=== PATIENT | male | born 1945 | race Caucasian/White ===

== ENCOUNTER → 2018-07-27 11:06 | Outpatient (CLI) | payer OTHER, SELFPAY ==
--- NOTE | 2018-07-27 | DI.CT.S_ITS ---
PROCEDURE: CT ABDOMEN PELVIS W CON INDICATIONS: ABDOMINAL PAIN TECHNIQUE: After the administration of oral and intravenous contrast, 5 mm thick sections acquired from the diaphragms to the symphysis. 5 mm thick coronal and sagittal reformats were performed. For radiation dose reduction, the following was used: automated exposure control, adjustment of mA and/or kV according to patient size. COMPARISON: [facility], CT, ABDOMEN/PELVIS WITH CONTRAST, 02/09/2017, 19:14. FINDINGS: Image quality: Excellent. ABDOMEN: Lung bases: Lung bases are clear. Heart size is normal. Solid organs: Liver is normal in size and enhancement. Gallbladder is surgically absent. Biliary system is non-dilated. Pancreas enhances normally. Spleen is normal in size and enhancement. No adrenal nodules. There are 2 nonobstructing calculi within the inferior pole left kidney measuring 1-2 mm diameter. Kidneys are normal in size and enhancement, without hydronephrosis. Peritoneum and bowel: Stomach and small bowel are within normal limits. A small hiatal hernia is present. The colon is nondistended. There is diverticulosis of the descending and sigmoid colon. There is moderate thickening of the mid sigmoid colon within the anterior pelvis. There is mild fat stranding surrounding the thickened segment of sigmoid colon. No pericolonic abscess. Appendix not seen. No evidence of appendicitis. No free fluid or air. Nodes and vessels: No retroperitoneal or mesenteric adenopathy. Aorta and inferior vena cava are normal in caliber. Miscellaneous: No ventral hernias. PELVIS: Genitourinary: Bladder wall thickness is normal. Miscellaneous: No inguinal hernias or adenopathy. Bones: No suspicious bony lesions. No vertebral body compression fractures. IMPRESSION: 1. Mid sigmoid colon diverticulitis without pericolonic abscess. 2. Small nonobstructing calculi in the inferior pole left kidney. 3. Small hiatal hernia. 4. Findings consistent with Dr. Richey's medical office coordinator, Yadira, on 07.27.18 at 1420 hrs. Dictated by: Khadijah Rivas M.D. on 07/27/2018 at 14:21 Approved by: Khadijah Rivas M.D. on 07/27/2018 at 14:26
== END ==
PROVIDERS: Family Provider Internal Medicine; PCP Internal Medicine; Visit Provider Internal Medicine
DX: R10.30 Lower abdominal pain, unspecified (principal); K57.32 Diverticulitis of large intestine without perforation or abscess without bleeding; N20.0 Calculus of kidney; K44.9 Diaphragmatic hernia without obstruction or gangrene
CPT/HCPCS: 74177; 80048; 85025; Q9967

== ENCOUNTER → 2018-07-27 11:14 | Outpatient (REF) | payer OTHER, SELFPAY ==
[2018-07-27 11:20] LABS: Add Manual Diff / Slide Review NO; Basophils Percent Auto 0.6 % (0-2); Eosinophils Percent Auto 0.2 % (2-4); Hematocrit 46.2 % (41-53); Hemoglobin 15.7 g/dL (13.5-17.5); Lymphocytes Percent Auto 8.3 % (25-40); Mean Corpuscular Hemoglobin 31.8 PG (26-34); Mean Corpuscular Volume 93.7 fL (80-100); Monocytes Percent Auto 10.6 % (3-14); Neutrophils Absolute Auto 8900 /uL (3000-5900); Neutrophils Percent Auto 80.3 % (50-75); Platelet Count 226 X10^3/uL (150-400); Red Blood Cell Count 4.93 X10^6/uL (4.5-5.9); Red Cell Distribution Width 13.9 % (11.6-14.8); White Blood Cell Count 11.1 X10^3/uL (4.5-11.0)
[2018-07-27 11:25] LABS: BUN Creatinine Ratio 18.6 (6-22); Blood Urea Nitrogen 13 mg/dL (9-20); Calcium 9.4 mg/dL (8.4-10.2); Carbon Dioxide 24 mmol/L (22-32); Chloride 99 mmol/L (98-107); Estimated Glomerular Filt Rate > 60.0 mL/min (>60); Glucose 143 mg/dL (80-110); HEMOLYSIS < 15 (0-50); Potassium 4.2 mmol/L (3.4-5.1); Sodium 135 mmol/L (137-145)
== END ==
LOC: LAB 11:14
PROVIDERS: Family Provider Internal Medicine; PCP Internal Medicine; Visit Provider Internal Medicine
DX: R10.30 Lower abdominal pain, unspecified (principal)
CPT/HCPCS: 80048; 85025

== ENCOUNTER 2018-08-25 09:30 | Day surgery (SDC) | payer OTHER, SELFPAY ==
[2018-08-25] VITALS (8 sets, daily range): BP systolic 123–187; BP diastolic 71–88; PULSE 60–75; RESP 10–18; TEMP 36.3–37.3; O2SAT 95–100; BMI 32.1
[2018-08-25] MEDS: SODIUM CHLORIDE 0.9% 1,000 ML 70 ML IV (09:48)
--- NOTE | 2018-08-25 10:28 | P.HP_ITS ---
History of Present Illness Date Patient Seen: 08/25/18 Chief complaint: [id number] DIAGNOSTIC SIGMOIDOSCOPY Narrative: 72-year-old male with recurrent diverticulitis. Please refer to our office note dated 08/12/2018. There has been no change to his history or physical examination since that office visit. Patient History Family & Social History Social History: household members family Meds Home Medications Medication Instructions Recorded Confirmed Type losartan 100 mg PO QDAY #0 12/21/16 08/25/18 History Multi Vitamin 08/25/18 History apixaban [Eliquis] 5 mg PO BID 08/25/18 08/25/18 History clonidine HCl 0.1 mg PO BID 08/25/18 08/25/18 History diltiazem HCl 180 mg PO DAILY 08/25/18 08/25/18 History metoprolol succinate 50 mg PO TID 08/25/18 08/25/18 History saw palmetto 08/25/18 History Allergies Allergy/AdvReac Type Severity Reaction Status Date / Time warfarin [From COUMADIN] Allergy Severe Difficulty Verified 08/25/18 10:05 Breathing Review of Systems Review of Systems All systems reviewed & are unremarkable except as noted in HPI and below Exam Vital Signs (past 8 hours): - 08/25/18 09:48 Temperature 97.4 F L Pulse Rate 75 Respiratory Rate 16 Blood Pressure 187/85 H Pulse Oximetry 99 Oxygen Delivery Method Room Air Narrative Exam Narrative: General: Patient is obese, not in apparent distress Cardiovascular: Regular rate and rhythm, no murmurs, rubs, or gallops; no evidence of edema; no palpable abdominal aortic aneurysm Gastrointestinal: Normoactive bowel sounds, soft, nontender, nondistended, no rebound tenderness, no hepatosplenomegaly, no evidence of hernia; positive surgical scars Assessment & Plan Plan: Assessment/Plan Narrative: 72-year-old male with history of recurrent diverticulitis who is here for flexible sigmoidoscopy to rule out tumor in the sigmoid colon. He did not want to undergo a complete colonoscopy. Regarding the procedure(s), the risks and potential complications, benefits, and alternatives (including not doing the procedure) were discussed with the patient. The risks include but are not limited to bleeding, splenic injury, infection, perforation which may require surgical intervention, missed lesions, and adverse reactions to sedative medicines. After a question and answer period , the patient agreed to proceed with the procedure(s) and gives informed consent.
--- NOTE | 2018-08-25 11:06 | PM.OP.ENDO ---
Operative Date/Time/Diagnoses Date of procedure: 08/25/18 Procedure Notes Procedure in detail: Surgeon: Michi Olson MD Procedure: Flexible sigmoidoscopy Preoperative diagnosis: Recurrent diverticulitis rule out sigmoid neoplasm Postoperative diagnosis: Poor prep in sigmoid, sigmoid diverticulosis, grade 1 internal hemorrhoids, hypertrophied anal papillae Medications: Conscious sedation using 2 mg IV of Midazolam and 50 mcg IV of Fentanyl Preanesthesia Assessment An H and P was performed/updated and the Px?s ASA class is 2. The procedure was discussed in detail with the patient. The potential risks and complications including infection, bleeding, missed lesions, perforation, need for surgery in case of perforation, prolonged hospital stay, and were explained. A brief question and answer period was allotted and once all questions were answered, informed consent was obtained. The patient was brought back to the procedure room and placed on standard monitoring. The patient?s vital signs were monitored continuously throughout the entire procedure. Prior to starting, a timeout was performed to confirm the patient?s identity, allergies, medications, and procedure. Procedure in detail The patient was placed in left lateral decubitus position and once adequate sedation was obtained a GABBIE was performed. The digital rectal examination did not reveal any palpable lesions. The tip of the colonoscope was placed in the anal canal and advanced without difficulty all the way to the sigmoid colon. There was note of solid stool in the sigmoid colon and hence the descending colon was not able to be intubated. There is note of multiple medium to large-sized diverticula the sigmoid colon, with no evidence of neoplasm or large polyps in the visualized colonic mucosa. In the proximal sigmoid colon there was a large amount of solid stool and hence this could not be traversed to visualize the descending colon. Retroflexion was performed in the rectum which revealed grade 1 internal hemorrhoids and hypertrophied anal papillae. The patient tolerated the procedure well and will be brought back to the recovery area to be discharged once criteria are met. The prep was judged to be good up to the area of the proximal sigmoid and adequate to identify polyps less than 5 mm. The total physician intraservice time was 5 min. Complications There were no complications and estimated blood loss was zero. Recommendations: Resume previous diet Continue outPx medications Would recommend complete colonoscopy once patient is agreeable Office follow up with Dr. Royal at next available appointment An emergency contact number was given to the patient for any complications related to the procedure
[2018-08-25] MEDS: MIDAZOLAM 5 MG/5 ML VIAL IV (11:10)
[2018-08-25] MEDS: fentaNYL 250 MCG/5 ML INJ IV (11:10)
--- NOTE | 2018-08-25 11:26 | PM.DS.1 ---
History of Present Illness Chief complaint: [id number] DIAGNOSTIC SIGMOIDOSCOPY Narrative: 72-year-old male with recurrent diverticulitis. Please refer to our office note dated 08/12/2018. There has been no change to his history or physical examination since that office visit. Discharge Providers Primary care physician: Mona Richey MD Discharge provider: Michi Olson MD Discharge Date: 08/25/18 Exam Vital Signs (past 8 hours): - 08/25/18 09:48 08/25/18 11:14 08/25/18 11:20 Temperature 97.4 F L 97.3 F L Pulse Rate 75 67 60 Respiratory Rate 16 18 10 L Blood Pressure 187/85 H 144/85 H 123/72 Pulse Oximetry 99 95 97 08/25/18 11:25 Temperature Pulse Rate 63 Respiratory Rate 13 Blood Pressure 141/85 H Pulse Oximetry 96 Oxygen Delivery Method Room Air Narrative Exam Narrative: General: Patient is obese, not in apparent distress Cardiovascular: Regular rate and rhythm, no murmurs, rubs, or gallops; no evidence of edema; no palpable abdominal aortic aneurysm Gastrointestinal: Normoactive bowel sounds, soft, nontender, nondistended, no rebound tenderness, no hepatosplenomegaly, no evidence of hernia Discharge Plan Discharge Plan Patient Disposition: Home Discharge Med Rec/Prescriptions Prescriptions: Continue losartan 100 MG tablet 100 mg PO QDAY Qty: 0 RF: 0 clonidine HCl 0.1 MG tablet 0.1 mg PO BID RF: 0 diltiazem HCl 180 MG 180 mg PO DAILY RF: 0 apixaban [Eliquis] 5 mg Tablet 5 mg PO BID RF: 0 metoprolol succinate 50 MG tablet 50 mg PO TID RF: 0 Multi Vitamin RF: 0 saw palmetto RF: 0 Discharge Orders: Discharge (Order); Ordered 08/25/18 Ordered By: Michi Olson Provider Discharge Instructions Diet: Diet as Tolerated Visit Report/Discharge Packet Stand Alone Forms: Colonoscopy Result, Surgery Discharge Discharge Data Primary Care Provider: Mona Richey Attending Provider: Michi Olson
--- NOTE | 2018-08-25 12:02 | SUR.PHASEII ---
assumed care from danielle, called, on her way in. pt placed on continuous pulse ox due to occasional low sats in pacu, pt maintained above 90% on room air. report to zachariah rodríguez.
--- NOTE | 2018-08-25 12:25 | SUR.PHASEII ---
pt tolerating sips of coffee and eating an energy bar, denies any discomfort or pain, instructions reviewed with pt and with verbalized understanding.
== END 2018-08-25 12:28 | disposition home or self-care (01) ==
PROVIDERS: Family Provider Internal Medicine; PCP Internal Medicine; Visit Provider Internal Medicine Gastroenterology
PROC: 0DJD8ZZ Inspection of Lower Intestinal Tract, Via Natural or Artificial Opening Endoscopic (ICD-10-PCS; CPT 45378; principal; 2018-08-25 11:00)
DX: R10.9 Unspecified abdominal pain (principal); K57.92 Diverticulitis of intestine, part unspecified, without perforation or abscess without bleeding; F43.10 Post-traumatic stress disorder, unspecified; E66.9 Obesity, unspecified; I10 Essential (primary) hypertension; I48.0 Paroxysmal atrial fibrillation; E78.5 Hyperlipidemia, unspecified; K57.30 Diverticulosis of large intestine without perforation or abscess without bleeding; K64.0 First degree hemorrhoids
CPT/HCPCS: 45330; J2250; J3010

== ENCOUNTER → 2018-12-23 08:24 | Outpatient (CLI) | payer OTHER, SELFPAY ==
[2018-12-23 09:07] LABS: Hemoglobin A1C% w Est Avg Glu 6.1 % (4.0-6.0)
[2018-12-23 10:24] LABS: Glucose 119 mg/dL (80-110)
== END ==
PROVIDERS: PCP Internal Medicine; Visit Provider Internal Medicine
DX: R73.01 Impaired fasting glucose (principal)
CPT/HCPCS: 36415; 82947; 83036

== ENCOUNTER → 2019-01-11 15:55 | Outpatient (CLI) | payer OTHER, SELFPAY ==
--- NOTE | 2019-01-11 | DI.ECHO.S_ITS ---
[facility]---------+ [facility] +---------+ : : [id number] : [place] : : : : [id number] : : : : Phone: [phone]+ Echocardiogram Report + + :Name: CHON MCCARTHY Study Date: 01/11/2019 Height: 67 in : :[facility] Exam Location: [facility] Weight: 209 lb : : Gender: Male BSA: 2.1 m2 : :: 1945 Age: 73 yrs BP: 140/80 mmHg: :Reason For Study: KUNZ : :Ordering Physician: Mona Richey Performed By: Sue Page : + + Interpretation Summary The left ventricle is normal in size. The ejection fraction is estimated to be 60-65%. The right ventricle is normal in size and function. The aortic valve is not well visualized. Leaflet mobility is mild to moderately reduced. The peak aortic velocity is 2.9 m/sec. The aortic valve mean gradient is 18.6 mmHg. The peak aortic velocity on the previous exam was 2.7 m/sec. The calculated aortic valve area is 1.1 cm2. There is mild to moderate aortic stenosis. Compared to the prior echo study, there has been an increase in the severity of aortic stenosis. There is mild aortic regurgitation. There is trace tricuspid regurgitation. The right ventricular systolic pressure is estimated to be at least 36 mmHg based on an estimated right atrial pressure of 3 mm Hg. The ascending aorta is mildly enlarged. 3.8 cm in diameter. In July 2015 it was 4.0 cm in diameter. Procedure: A two-dimensional transthoracic echocardiogram with color flow and Doppler was performed. The study quality was technically adequate. Comparison is made with the echocardiogram of 07/25/2015. The heart rate ranged between 60-80 bpm during the study. The patient was in atrial fibrillation with controlled ventricular rate during the exam. The patient had occasional PVCs during the exam. Left Ventricle: The left ventricle is normal in size. Left ventricular wall thickness is normal. There is no thrombus. The ejection fraction is estimated to be 60-65%. There are no focal wall motion abnormalities. E/E' med: 20.2. Right Ventricle: The right ventricle is normal in size and function. Atria: The left atrium is severely dilated. The left atrium has mildly increased in size since the prior echo exam. The right atrium is mildly dilated. There is no Doppler evidence for an interatrial shunt. Mitral Valve: There is mild mitral annular calcification. There is trace mitral regurgitation. Aortic Valve: The aortic valve is not well visualized. Leaflet mobility is mild to moderately reduced. The peak aortic velocity is 2.9 m/sec. The peak aortic velocity on the previous exam was 2.7 m/sec. The calculated aortic valve area is 1.1 cm2. The aortic valve mean gradient is 18.6 mmHg. There is mild to moderate aortic stenosis. Compared to the prior echo study, there has been an increase in the severity of aortic stenosis. There is mild aortic regurgitation. Tricuspid Valve: The tricuspid valve is normal in structure and function. There is trace tricuspid regurgitation. The right ventricular systolic pressure is estimated to be at least 36 mmHg based on an estimated right atrial pressure of 3 mm Hg. Pulmonic Valve: The pulmonic valve is not well visualized. There is trace pulmonic regurgitation. Great Vessels: The aortic root is normal size. The ascending aorta is mildly enlarged. The pulmonary artery is not well visualized, but is probably normal size. The IVC is of normal diameter and collapses greater than 50% with a sniff. This suggests a low right atrial pressure of 3 mm Hg. Pericardium/ Pleura There is no pericardial effusion. There is no pleural effusion. MMode/2D Measurements & Calculations LVIDd: 4.4 cm LVOT diam: 2.0 cm LVIDs: 2.4 cm Ao root diam: 3.6 cm FS: 46.1 % asc Aorta Diam: 3.8 cm EPSS: 0.00 cm IVSd: 0.96 cm LVPWd: 0.81 cm LV sanchez. diameter/BSA (cm/m^2): 2.1 LV sys. diameter/BSA (cm/m^2): 1.2 LA A2 area: 32.1 cm2 RA long axis: 6.1 cm LA A4 area: 29.7 cm2 RA area: 22.7 cm2 LA length (vol): 6.5 cm RA vol: 71.5 ml LA vol: 124.5 ml RA : 34.7 ml/m2 LA vol index: 60.4 ml/m2 IVC diam: 2.0 cm RVD1 (basal): 4.0 cm RVD2 (mid): 2.6 cm Doppler Measurements & Calculations Ao V2 max: 290.8 cm/sec LVOT Max Ranjit: 102.6 cm/sec Ao V2 mean: 203.8 cm/sec LV V1 max P.3 mmHg Ao max P.8 mmHg LV V1 VTI: 21.3 cm Ao mean P.6 mmHg MARLON(I,D): 1.1 cm2 Ao V2 VTI: 56.8 cm MARLON(V,D): 1.1 cm2 sev ratio: 0.38 MARLON indexed to BSA (cm^2/m^2): 0.54 MV E max ranjit: 138.6 cm/sec TR max ranjit: 285.7 cm/sec Med Peak E' Ranjit: 6.8 cm/sec TR max P.6 mmHg E/E' med: 20.2 PA V2 max: 65.7 cm/sec Lat Peak E' Ranjit: 8.4 cm/sec PA V2 mean: 46.9 cm/sec E/E' lat: 16.4 PA mean P.95 mmHg E/e' average: 18.3 PA Accel Time: 0.06 sec MV P1/2t: 46.9 msec MVA(VTI): 2.0 cm2 MV V2 mean: 76.0 cm/sec MV P1/2t max ranjit: 140.1 cm/sec MV mean P.3 mmHg MVA(P1/2t): 4.7 cm2 MV V2 VTI: 31.4 cm SV(LVOT): 63.7 ml Reading Physician:BOOKER
== END ==
PROVIDERS: Family Provider Internal Medicine Cardiovascular Disease; PCP Internal Medicine; Visit Provider Internal Medicine
DX: I35.2 Nonrheumatic aortic (valve) stenosis with insufficiency (principal); I77.89 Other specified disorders of arteries and arterioles; R06.09 Other forms of dyspnea
CPT/HCPCS: 93306

== ENCOUNTER → 2019-02-18 07:28 | Outpatient (CLI) | payer OTHER, SELFPAY ==
[2019-02-18 08:47] LABS: Glucose 129 mg/dL (80-110)
[2019-02-18 08:58] LABS: Hemoglobin A1C% w Est Avg Glu 6.3 % (4.0-6.0)
== END ==
PROVIDERS: PCP Internal Medicine; Visit Provider Internal Medicine
DX: R73.01 Impaired fasting glucose (principal)
CPT/HCPCS: 36415; 82947; 83036

== ENCOUNTER → 2019-06-06 08:25 | Outpatient (CLI) | payer OTHER, SELFPAY ==
[2019-06-06 09:49] LABS: BUN Creatinine Ratio 28.8 (6-22); Blood Urea Nitrogen 23 mg/dL (9-20); Calcium 10.1 mg/dL (8.4-10.2); Carbon Dioxide 30 mmol/L (22-32); Chloride 95 mmol/L (98-107); Cholesterol 167 mg/dL (140-199); Estimated Glomerular Filt Rate > 60.0 mL/min (>60); Glucose 132 mg/dL (80-110); HDL Cholesterol 31 mg/dL (40-60); HEMOLYSIS < 15 (0-50); LDL Cholesterol Calculated 105 mg/dL (<100); Potassium 4.7 mmol/L (3.4-5.1); Sodium 136 mmol/L (137-145); Triglycerides 155 mg/dL (35-150)
[2019-06-10 08:49] LABS: PSA Free % 9 % (calc) (> 25); PSA, Total 5.7 ng/mL (< 4.1)
== END ==
PROVIDERS: PCP Internal Medicine; Visit Provider Internal Medicine
DX: E11.9 Type 2 diabetes mellitus without complications (principal); E78.5 Hyperlipidemia, unspecified; R97.20 Elevated prostate specific antigen [PSA]
CPT/HCPCS: 36415; 80048; 80061; 83036; 84153; 84154

== ENCOUNTER 2019-07-06 20:13 | Emergency (ER) | payer OTHER, SELFPAY ==
[2019-07-06 20:18] VITALS: BP 168/78; PULSE 59; RESP 18; TEMP 37.1; O2SAT 100
--- NOTE | 2019-07-06 20:24 | DI.RAD.S_ITS ---
PROCEDURE: XR CHEST 2V INDICATIONS: sudden pain. TECHNIQUE: 2 views of the chest were acquired. COMPARISON: [facility], , CHEST 1 VIEW, 11/09/2015, 1:19. FINDINGS: Surgical changes and devices: Cholecystectomy clips.. Lungs and pleura: Low lung volumes. Mild right basilar atelectatic changes. No pleural effusions or pneumothorax. Mediastinum: Mediastinal contours are stable. Heart size is normal. Bones and chest wall: No suspicious bony abnormalities. Soft tissues appear unremarkable. IMPRESSION: Low lung volumes with mild right base atelectasis. No acute process. Dictated by: Pili May M.D. on 07/06/2019 at 20:57 Approved by: Pili May M.D. on 07/06/2019 at 20:59
--- NOTE | 2019-07-06 22:19 | ED_ITS ---
HPI - Chest Pain General Chief Complaint: Chest Pain Stated Complaint: RIB PAIN Time Seen by Provider: 07/06/19 22:13 Mode of arrival: Wheelchair Limitations: no limitations History of Present Illness HPI narrative: Patient is a 73-year-old male who presents with left-sided rib pain. He states that he sneezed multiple times quite violently earlier today and ever since then he has intense pain every time he moves or breathes in 1 particular area. It hurts every time he touches it. He is on Xarelto for atrial fibrillation and cannot take any ibuprofen. He feels like something tore ripped. He feels like he is breathing shallow but does not actually feel short of breath. MD complaint: chest pain Duration: constant Onset: other (While sneezing) Pain location: left chest Severity: moderate Quality: sharp Pain radiation: none Relieving factors: nothing Exacerbating factors: exertion, inspiration, palpation and movement Related Data Home Medications Medication Instructions Recorded Confirmed losartan 100 mg PO QDAY #0 12/21/16 08/25/18 Multi Vitamin 08/25/18 apixaban [Eliquis] 5 mg PO BID 08/25/18 08/25/18 clonidine HCl 0.1 mg PO BID 08/25/18 08/25/18 diltiazem HCl 180 mg PO DAILY 08/25/18 08/25/18 metoprolol succinate 50 mg PO TID 08/25/18 08/25/18 mehnaz govea 08/25/18 Previous Rx's Medication Instructions Recorded hydrocodone-acetaminophen [[place]] 1 tab PO Q6HR PRN #10 tab 07/06/19 Allergies Allergy/AdvReac Type Severity Reaction Status Date / Time warfarin [From COUMADIN] Allergy Severe Difficulty Verified 08/25/18 10:05 Breathing Review of Systems Review of Systems Narrative: GENERAL: Denies chills, fatigue, malaise, fever, sweats, travel HEENT: Denies sinus pain, ear pain, sore throat, difficulty swallowing, neck pain RESPIRATORY: Denies dyspnea, cough, wheezing, hemoptysis, sputum. CARDIOVASCULAR: See HPI GASTROINTESTINAL: Denies nausea, vomiting, abdominal pain, diarrhea, constipation, melena. : Denies dysuria, frequency, incontinence, hematuria, urinary retention, flank pain. MUSCULOSKELETAL: Denies weakness, joint pain, or bony pain SKIN: No rash, no erythema, no pruritus NEUROLOGIC: Denies weakness, dizziness, headache, numbness, change in speech, confusion PSYCHIATRIC: No concerning psychosocial issues. 12 point review of systems is negative except for those stated above and HPI Patient History Medical History Atrial fibrillation (Acute) Social History household members: family Smoking Status: Never smoker alcohol intake frequency: 0-2 drinks per day Substance Use Type: does not use Exam Initial Vital Signs Initial Vital Signs: Vital Signs Temperature 98.7 F 07/06/19 20:18 Pulse Rate 59 L 07/06/19 20:18 Respiratory Rate 18 07/06/19 20:18 Blood Pressure 168/78 H 07/06/19 20:18 Pulse Oximetry 100 07/06/19 20:18 GENERAL: Alert older gentleman HEENT: Head atraumatic,EOMI, pupils reactive, face symmetric, moist mucous membranes CARDIOVASCULAR: Regular rate and rhythm without murmurs, rubs or gallops. Left- sided rib pain anterior rib it 7. And 8. No rashes tender to touch in 1 specific area. Pain with deep breathing. RESPIRATORY: Breath sounds equal bilaterally, no wheezes rales or rhonchi. ABDOMEN: Soft, nontender. Normoactive bowel sounds all 4 quadrants. No guarding or rebound. EXTREMITIES: Normal range of motion, no clubbing or edema. Neurovascularly intact NEUROLOGICAL: Alert and oriented x4.Normal gait and speech. SKIN: Warm, dry, no laceration, no petechiae, no rashes or lesions. Course Orders Ordered: ED Orders 07/06/19 20:24 XR chest 2V Stat Discontinued Medications Hydrocodone Bitart/Acetaminophen (Vicodin Prepack) 1 bottle MISC SEEINSTR ONE Stop: 07/06/19 22:26 Last Admin: 07/06/19 22:33 Dose: 1 bottle Documented by: JERZY Vital Signs Vital signs: Vital Signs - 8 hr 07/06/19 20:18 07/06/19 22:48 Temperature 98.7 F Pulse Rate 59 L 61 Respiratory Rate 18 Blood Pressure 168/78 H 130/58 L Pulse Oximetry 100 96 MDM - Chest Pain Imaging Data Chest x-ray: Radiologist's impression: PROCEDURE: XR CHEST 2V INDICATIONS: sudden pain. TECHNIQUE: 2 views of the chest were acquired. COMPARISON: [facility], , CHEST 1 VIEW, 11/09/2015, 1:19. FINDINGS: Surgical changes and devices: Cholecystectomy clips.. Lungs and pleura: Low lung volumes. Mild right basilar atelectatic changes. No pleural effusions or pneumothorax. Mediastinum: Mediastinal contours are stable. Heart size is normal. Bones and chest wall: No suspicious bony abnormalities. Soft tissues appear unremarkable. IMPRESSION: Low lung volumes with mild right base atelectasis. No acute process. Dictated by: Pili May M.D. on 07/06/2019 at 20:57 MDM Narrative Medical decision making narrative: The patient's pain is reproducible with palpation worse with movement. Consistent with musculoskeletal pain. He is given prepack of pain medication along with prescription. Discharge Plan Departure Patient Disposition: Home Clinical Impression: Acute costochondritis Discharge Date/Time: 07/06/19 22:48 Instructions: DI for Costochondritis Activity Restrictions/Additional Instructions: *You have been diagnosed with costochondritis *What to do: Recommend splinting area with a pillow. If still having significant and severe pain in about 1 week you may require repeat rib x-rays with her PCP *Continue to take medications as directed [place] 1 tablet every 6 hours if needed for severe pain Tylenol 650 mg every 4-6 hours if needed for [id number] pain *Follow up with your primary care provider in 2-3 days *Return to ER if you should have increasing shortness of breath severe pain or any new, worsening or concerning symptoms CONTROLLED SUBSTANCE DISCHARGE (Narcotoic/benzodiazepine/Flexeril/Phenergan) 1. You have been prescribed narcotic medications, it does have acetaminophen/Tylenol/paracetamol in it so do not take extra Tylenol or Tylenol containing products 2. Please understand that we cannot provide further refills of narcotics, benzodiazepines or controlled substances through the ED and her pain management will need to be through your provider. 3. While on these medications you cannot drive or operate heavy machinery. 4. You cannot sign legal documents or perform any duties such as this. 5. As long as you're taking opiate pain medications he should also be taking a stool softener such as Colace, Dulcolax, MiraLAX or prune juice, to help avoid constipation. Prescriptions: New hydrocodone-acetaminophen [[place]] 5-325 mg tablet 1 tab PO Q6HR PRN (Reason: pain) Qty: 10 RF: 0 No Action losartan 100 MG tablet 100 mg PO QDAY Qty: 0 RF: 0 clonidine HCl 0.1 MG tablet 0.1 mg PO BID RF: 0 diltiazem HCl 180 MG 180 mg PO DAILY RF: 0 apixaban [Eliquis] 5 mg Tablet 5 mg PO BID RF: 0 metoprolol succinate 50 MG tablet 50 mg PO TID RF: 0 Multi Vitamin RF: 0 mehnaz govea RF: 0 Referrals: Mona Richey MD [Primary Care Provider] -
[2019-07-06] MEDS: HYDROCODONE/ACET 5/325 PREPACK 1 BOTTLE MISC (22:33)
[2019-07-06 22:48] VITALS: BP 130/58; PULSE 61; O2SAT 96
== END 2019-07-06 22:48 | disposition home or self-care (01) ==
PROVIDERS: Emergency Provider Emergency Medicine; Family Provider Internal Medicine; PCP Internal Medicine
DX: M94.0 Chondrocostal junction syndrome [Tietze] (principal); R07.9 Chest pain, unspecified
CPT/HCPCS: 71046; 99282; 99283

== ENCOUNTER → 2019-09-02 09:04 | Outpatient (CLI) | payer OTHER, SELFPAY ==
--- NOTE | 2019-09-02 | DI.RAD.S_ITS ---
PROCEDURE: XR THORACIC SPINE 3V INDICATIONS: t spine pain TECHNIQUE: 2 views of the thoracic spine were acquired. COMPARISON: [facility], , XR CHEST 2V, 07/06/2019, 20:25. FINDINGS: Bones: No fracture. Multilevel diffuse spondylosis. Mild lateral curvature. Soft tissues: No paravertebral stripe thickening. IMPRESSION: No thoracic spine fracture radiographically identified Dictated by: Carlos Barajas M.D. on 09/02/2019 at 17:09 Approved by: Carlos Barajas M.D. on 09/02/2019 at 17:11
[2019-09-02 09:36] LABS: Hemoglobin A1C% w Est Avg Glu 6.2 % (4.0-6.0)
[2019-09-02 10:56] LABS: BUN Creatinine Ratio 27.1 (6-22); Blood Urea Nitrogen 19 mg/dL (9-20); Calcium 9.5 mg/dL (8.4-10.2); Carbon Dioxide 27 mmol/L (22-32); Chloride 93 mmol/L (98-107); Estimated Glomerular Filt Rate > 60.0 mL/min (>60); Glucose 124 mg/dL (80-110); Potassium 4.8 mmol/L (3.4-5.1); Sodium 131 mmol/L (137-145)
[2019-09-02 10:58] LABS: HEMOLYSIS 53 (0-50)
[2019-09-02 11:28] LABS: TSH w/ Reflex to FT4 3.37 uIU/mL (0.47-4.68)
[2019-09-02 11:48] LABS: Vitamin B12 682 pg/mL (239-931)
== END ==
PROVIDERS: PCP Internal Medicine; Visit Provider Internal Medicine
DX: E11.9 Type 2 diabetes mellitus without complications (principal); R53.82 Chronic fatigue, unspecified; E53.8 Deficiency of other specified B group vitamins; M54.6 Pain in thoracic spine
CPT/HCPCS: 36415; 72070; 80048; 82607; 83036; 84443

== ENCOUNTER → 2019-10-27 16:28 | Outpatient (ROUT) | payer MEDICARE, SELFPAY ==
[2019-10-27 17:22] LABS: Add Manual Diff / Slide Review NO; Basophils Absolute Auto 100 /uL (0-100); Eosinophils Absolute Auto 100 /uL (0-450); Eosinophils Percent Auto 1.7 % (2-4); Hematocrit 45.8 % (41-53); Hemoglobin 15.6 g/dL (13.5-17.5); Lymphocytes Absolute Auto 900 /uL (1100-4500); Lymphocytes Percent Auto 11.5 % (25-40); Mean Corpuscular Hemoglobin 30.6 PG (26-34); Mean Corpuscular Volume 90.1 fL (80-100); Monocytes Absolute Auto 1000 /uL (0-900); Monocytes Percent Auto 12.7 % (3-14); Neutrophils Absolute Auto 5600 /uL (1500-7000); Neutrophils Percent Auto 73.1 % (50-75); Platelet Count 258 X10^3/uL (150-400); Red Blood Cell Count 5.08 X10^6/uL (4.5-5.9); Red Cell Distribution Width 14.6 % (11.6-14.8); White Blood Cell Count 7.7 X10^3/uL (4.5-11.0)
[2019-10-27 17:41] LABS: Alanine Aminotransferase 26 IU/L (<50); Albumin 4.1 g/dL (3.5-5.0); Albumin Globulin Ratio 1.2 (1.0-2.8); Alkaline Phosphatase 52 U/L (38-126); Amylase 41 U/L (30-110); Aspartate Aminotransferase 35 IU/L (17-59); BUN Creatinine Ratio 24.3 (6-22); Bilirubin Total 0.8 mg/dL (0.2-1.3); Blood Urea Nitrogen 17 mg/dL (9-20); Calcium 9.9 mg/dL (8.4-10.2); Carbon Dioxide 26 mmol/L (22-32); Chloride 95 mmol/L (98-107); Estimated Glomerular Filt Rate > 60.0 mL/min (>60); Globulin 3.4 g/dL (1.7-4.1); Glucose 111 mg/dL (80-110); HEMOLYSIS < 15 (0-50); Lipase 68 U/L (23-300); Potassium 4.5 mmol/L (3.4-5.1); Sodium 133 mmol/L (137-145); Total Protein 7.5 g/dL (6.3-8.2)
[2019-10-27 17:47] LABS: Hemoglobin A1C% w Est Avg Glu 6.3 % (4.0-6.0)
== END ==
PROVIDERS: PCP Internal Medicine; Visit Provider Internal Medicine
DX: R10.84 Generalized abdominal pain (principal); E11.9 Type 2 diabetes mellitus without complications
CPT/HCPCS: 80053; 82150; 83036; 83690; 85025

== ENCOUNTER → 2020-01-10 08:08 | Outpatient (CLI) | payer MEDICARE, SELFPAY ==
[2020-01-10 08:43] LABS: Hemoglobin A1C% w Est Avg Glu 6.7 % (4.0-6.0)
[2020-01-10 08:50] LABS: Alanine Aminotransferase 31 IU/L (<50); Albumin 4.3 g/dL (3.5-5.0); Albumin Globulin Ratio 1.2 (1.0-2.8); Alkaline Phosphatase 43 U/L (38-126); Aspartate Aminotransferase 42 IU/L (17-59); BUN Creatinine Ratio 23.4 (6-22); Bilirubin Total 1.4 mg/dL (0.2-1.3); Blood Urea Nitrogen 18 mg/dL (9-20); Calcium 9.9 mg/dL (8.4-10.2); Carbon Dioxide 29 mmol/L (22-32); Chloride 92 mmol/L (98-107); Estimated Glomerular Filt Rate > 60.0 mL/min (>60); Globulin 3.5 g/dL (1.7-4.1); Glucose 115 mg/dL (80-110); HEMOLYSIS 19 (0-50); Potassium 4.6 mmol/L (3.4-5.1); Sodium 129 mmol/L (137-145); Total Protein 7.8 g/dL (6.3-8.2)
[2020-01-10 09:03] LABS: Cholesterol 156 mg/dL (140-199); HDL Cholesterol 30 mg/dL (40-60); LDL Cholesterol Calculated 94 mg/dL (<100); Triglycerides 161 mg/dL (35-150)
== END ==
PROVIDERS: PCP Internal Medicine; Referring Provider Internal Medicine; Visit Provider Internal Medicine
DX: E11.9 Type 2 diabetes mellitus without complications (principal); E78.2 Mixed hyperlipidemia
CPT/HCPCS: 36415; 80053; 80061; 83036

== ENCOUNTER → 2020-02-27 15:04 | Outpatient (CLI) | payer MEDICARE, SELFPAY ==
[2020-02-27 15:43] LABS: Add Manual Diff / Slide Review NO; Basophils Absolute Auto 100 /uL (0-100); Basophils Percent Auto 0.7 % (0-2); Eosinophils Absolute Auto 100 /uL (0-450); Eosinophils Percent Auto 0.6 % (2-4); Hematocrit 47.5 % (41-53); Hemoglobin 16.5 g/dL (13.5-17.5); Lymphocytes Absolute Auto 1100 /uL (1100-4500); Lymphocytes Percent Auto 10.3 % (25-40); Mean Corpuscular HGB Conc 34.7 % (30-36); Mean Corpuscular Hemoglobin 30.1 PG (26-34); Mean Corpuscular Volume 86.6 fL (80-100); Monocytes Absolute Auto 1500 /uL (0-900); Monocytes Percent Auto 14.2 % (3-14); Neutrophils Absolute Auto 8000 /uL (1500-7000); Neutrophils Percent Auto 74.2 % (50-75); Platelet Count 246 X10^3/uL (150-400); Red Blood Cell Count 5.49 X10^6/uL (4.5-5.9); Red Cell Distribution Width 14.1 % (11.6-14.8); White Blood Cell Count 10.8 X10^3/uL (4.5-11.0)
[2020-02-27 16:00] LABS: Alanine Aminotransferase 29 IU/L (<50); Albumin 4.4 g/dL (3.5-5.0); Albumin Globulin Ratio 1.4 (1.0-2.8); Alkaline Phosphatase 39 U/L (38-126); Aspartate Aminotransferase 44 IU/L (17-59); Bilirubin Total 1.5 mg/dL (0.2-1.3); Blood Urea Nitrogen 22 mg/dL (9-20); Calcium 9.7 mg/dL (8.4-10.2); Carbon Dioxide 26 mmol/L (22-32); Chloride 86 mmol/L (98-107); Estimated Glomerular Filt Rate > 60.0 mL/min (>60); Globulin 3.2 g/dL (1.7-4.1); Glucose 109 mg/dL (80-110); HEMOLYSIS < 15 (0-50); Lipase 84 U/L (23-300); Potassium 3.3 mmol/L (3.4-5.1); Sodium 124 mmol/L (137-145); Total Protein 7.6 g/dL (6.3-8.2)
[2020-02-27 16:06] LABS: Appearance Urine UA CLEAR; Bilirubin Urine UA NEGATIVE (NEGATIVE); Color Urine UA YELLOW; Glucose Urine UA NEGATIVE (Negative); Ketones Urine UA NEGATIVE (NEGATIVE); Leukocyte Esterase Urine UA NEGATIVE (NEGATIVE); Nitrite Urine UA NEGATIVE (Negative); Occult Blood Urine UA 1+ (Negative); Protein Urine UA 1+ (Negative); Specific Gravity Urine UA 1.015 (1.000-1.035); Urobilinogen Urine UA 0.2 E.U./dL (0.2); pH Urine UA 6.5 (4.5-8.0)
[2020-02-27 16:51] LABS: Amorphous Sediment Urine 1+; RBC Urine 1-5/HPF (0-5/HPF); Squamous Epithelial Cell Urine 0-1 /HPF (0-5/HPF); WBC Urine 1-5/HPF (0-5/HPF)
[2020-02-27 16:52] LABS: Bacteria Urine Few (2-10); Culture Indicated Urine Cult Not Indicated
== END ==
PROVIDERS: PCP Internal Medicine; Referring Provider Internal Medicine; Visit Provider Internal Medicine
DX: R10.84 Generalized abdominal pain (principal)
CPT/HCPCS: 36415; 80053; 81001; 83690; 85025

== ENCOUNTER → 2020-03-08 15:21 | Outpatient (ROUT) | payer MEDICARE, SELFPAY ==
[2020-03-08 15:40] LABS: Add Manual Diff / Slide Review NO; Basophils Absolute Auto 100 /uL (0-100); Basophils Percent Auto 0.7 % (0-2); Eosinophils Absolute Auto 0 /uL (0-450); Eosinophils Percent Auto 0.3 % (2-4); Hematocrit 48.7 % (41-53); Hemoglobin 17.3 g/dL (13.5-17.5); Lymphocytes Absolute Auto 900 /uL (1100-4500); Lymphocytes Percent Auto 9.2 % (25-40); Mean Corpuscular HGB Conc 35.4 % (30-36); Mean Corpuscular Hemoglobin 30.8 PG (26-34); Mean Corpuscular Volume 87.2 fL (80-100); Monocytes Absolute Auto 1400 /uL (0-900); Monocytes Percent Auto 14.3 % (3-14); Neutrophils Absolute Auto 7300 /uL (1500-7000); Neutrophils Percent Auto 75.5 % (50-75); Platelet Count 264 X10^3/uL (150-400); Red Blood Cell Count 5.59 X10^6/uL (4.5-5.9); Red Cell Distribution Width 14.6 % (11.6-14.8); White Blood Cell Count 9.6 X10^3/uL (4.5-11.0)
[2020-03-08 15:43] LABS: Albumin 4.5 g/dL (3.5-5.0); Albumin Globulin Ratio 1.4 (1.0-2.8); Alkaline Phosphatase 45 U/L (38-126); Aspartate Aminotransferase 60 IU/L (17-59); BUN Creatinine Ratio 26.1 (6-22); Bilirubin Total 1.3 mg/dL (0.2-1.3); Blood Urea Nitrogen 18 mg/dL (9-20); Calcium 10.7 mg/dL (8.4-10.2); Carbon Dioxide 24 mmol/L (22-32); Chloride 92 mmol/L (98-107); Estimated Glomerular Filt Rate > 60.0 mL/min (>60); Globulin 3.2 g/dL (1.7-4.1); Glucose 126 mg/dL (80-110); HEMOLYSIS < 15 (0-50); Potassium 5.7 mmol/L (3.4-5.1); Sodium 130 mmol/L (137-145); Total Protein 7.7 g/dL (6.3-8.2)
[2020-03-08 15:49] LABS: Alanine Aminotransferase 50 IU/L (<50)
== END ==
PROVIDERS: PCP Internal Medicine; Visit Provider Internal Medicine
DX: R10.10 Upper abdominal pain, unspecified (principal)
CPT/HCPCS: 80053; 85025

== ENCOUNTER → 2020-03-08 15:24 | Outpatient (CLI) | payer MEDICARE, SELFPAY ==
--- NOTE | 2020-03-08 15:26 | DI.CT.S_ITS ---
PROCEDURE: CT ABDOMEN PELVIS W CON INDICATIONS: Upper abdominal pain, unspecified TECHNIQUE: After the administration of oral and intravenous contrast, 5 mm thick sections acquired from the diaphragms to the symphysis. 5 mm thick coronal and sagittal reformats were performed. For radiation dose reduction, the following was used: automated exposure control, adjustment of mA and/or kV according to patient size. COMPARISON: [facility], CT, CT ABDOMEN PELVIS W CON, 07/27/2018, 12:01. FINDINGS: Image quality: Partially degraded by motion artifact ABDOMEN: Lung bases: Lung bases are clear. Heart size is normal. Solid organs: Liver is normal in size and enhancement. Gallbladder is surgically absent. Biliary system is non-dilated. Pancreas enhances normally. Spleen is normal in size and enhancement. No adrenal nodules. Kidneys are normal in size and enhancement, without hydronephrosis. Peritoneum and bowel: Stomach, small bowel, and colon loops are normal in caliber and wall thickness. No free fluid or air. Nodes and vessels: No retroperitoneal or mesenteric adenopathy. Aorta and inferior vena cava are normal in caliber. Miscellaneous: No ventral hernias. PELVIS: Genitourinary: Bladder wall thickness is normal. Miscellaneous: No inguinal hernias or adenopathy. Bones: No suspicious bony lesions. No vertebral body compression fractures. IMPRESSION: 1. No acute process. Dictated by: Khadijah Rivas M.D. on 03/08/2020 at 16:51 Approved by: Khadjiah Rivas M.D. on 03/08/2020 at 16:53
== END ==
PROVIDERS: PCP Internal Medicine; Referring Provider Internal Medicine; Visit Provider Internal Medicine
DX: R10.10 Upper abdominal pain, unspecified (principal); Z90.49 Acquired absence of other specified parts of digestive tract
CPT/HCPCS: 74177; 80053; 85025; Q9967

== ENCOUNTER → 2020-03-15 16:01 | Outpatient (ROUT) | payer MEDICARE, SELFPAY ==
[2020-03-15 16:04] LABS: Bacteria Urine None Seen
[2020-03-15 16:16] LABS: Appearance Urine UA CLEAR; Bilirubin Urine UA NEGATIVE (NEGATIVE); Color Urine UA YELLOW; Glucose Urine UA NEGATIVE (Negative); Ketones Urine UA NEGATIVE (NEGATIVE); Leukocyte Esterase Urine UA NEGATIVE (NEGATIVE); Nitrite Urine UA NEGATIVE (Negative); Occult Blood Urine UA NEGATIVE (Negative); Protein Urine UA 1+ (Negative); Urobilinogen Urine UA 0.2 E.U./dL (0.2)
[2020-03-15 16:23] LABS: BUN Creatinine Ratio 29.9 (6-22); Blood Urea Nitrogen 20 mg/dL (9-20); Carbon Dioxide 22 mmol/L (22-32); Chloride 95 mmol/L (98-107); Estimated Glomerular Filt Rate > 60.0 mL/min (>60); Glucose 84 mg/dL (80-110); HEMOLYSIS < 15 (0-50); Potassium 4.9 mmol/L (3.4-5.1); Sodium 127 mmol/L (137-145)
[2020-03-15 16:25] LABS: Culture Indicated Urine Cult Not Indicated; RBC Urine 0-1/HPF (0-5/HPF); Squamous Epithelial Cell Urine 0-1 /HPF (0-5/HPF); WBC Urine 1-5/HPF (0-5/HPF)
== END ==
PROVIDERS: PCP Internal Medicine; Visit Provider Internal Medicine
DX: E87.1 Hypo-osmolality and hyponatremia (principal); R30.0 Dysuria
CPT/HCPCS: 80048; 81001

== ENCOUNTER → 2020-03-21 13:40 | Outpatient (CLI) | payer MEDICARE, SELFPAY ==
[2020-03-21 16:03] LABS: BUN Creatinine Ratio 27.9 (6-22); Blood Urea Nitrogen 19 mg/dL (9-20); Calcium 9.9 mg/dL (8.4-10.2); Carbon Dioxide 28 mmol/L (22-32); Chloride 94 mmol/L (98-107); Estimated Glomerular Filt Rate > 60.0 mL/min (>60); Glucose 125 mg/dL (80-110); HEMOLYSIS < 15 (0-50); Sodium 131 mmol/L (137-145)
[2020-03-21 16:05] LABS: Potassium 5.4 mmol/L (3.4-5.1)
== END ==
PROVIDERS: PCP Internal Medicine; Referring Provider Internal Medicine; Visit Provider Internal Medicine
DX: E87.1 Hypo-osmolality and hyponatremia (principal)
CPT/HCPCS: 36415; 80048

== ENCOUNTER → 2020-10-24 07:12 | Outpatient (CLI) | payer OTHER, SELFPAY ==
[2020-10-24 08:16] LABS: Hemoglobin A1C% w Est Avg Glu 6.7 % (4.0-6.0)
[2020-10-24 08:52] LABS: Creatinine Urine Random 111.7 mg/dL
[2020-10-24 08:58] LABS: Microalbumi Creatinin Ratio Ur 56.4 ug/mg CR (<30); Microalbumin Urine Random 6.3 mg/dL (0-1.6)
[2020-10-24 09:03] LABS: Alanine Aminotransferase 36 IU/L (<50); Albumin 4.1 g/dL (3.5-5.0); Albumin Globulin Ratio 1.3 (1.0-2.8); Alkaline Phosphatase 40 U/L (38-126); Aspartate Aminotransferase 54 IU/L (17-59); BUN Creatinine Ratio 27.5 (6-22); Blood Urea Nitrogen 19 mg/dL (9-20); Calcium 9.1 mg/dL (8.4-10.2); Carbon Dioxide 29 mmol/L (22-32); Chloride 98 mmol/L (98-107); Cholesterol 208 mg/dL (140-199); Estimated Glomerular Filt Rate > 60.0 mL/min (>60); Globulin 3.1 g/dL (1.7-4.1); Glucose 143 mg/dL (80-110); HDL Cholesterol 42 mg/dL (40-60); HEMOLYSIS < 15 (0-50); LDL Cholesterol Calculated 127 mg/dL (<100); Sodium 133 mmol/L (137-145); Total Protein 7.2 g/dL (6.3-8.2); Triglycerides 196 mg/dL (35-150)
== END ==
PROVIDERS: PCP Internal Medicine; Referring Provider Internal Medicine; Visit Provider Internal Medicine
DX: E11.42 Type 2 diabetes mellitus with diabetic polyneuropathy (principal); I10 Essential (primary) hypertension; E78.5 Hyperlipidemia, unspecified
CPT/HCPCS: 36415; 80053; 80061; 82043; 82570; 83036

== ENCOUNTER → 2021-01-17 09:01 | Outpatient (CLI) | payer OTHER, SELFPAY ==
--- NOTE | 2021-01-17 09:10 | DI.ECHO.S_ITS ---
[facility]---------+ [facility] +---------+ : : [address] : : : : [id number] : : : : Phone: [phone]---------+ Echocardiogram Report + + :Name: CHON MCCARTHY Study Date: 01/17/2021 Height: 67 in : :[facility] ReadingLocation: Weight: 198 lb : : Gender: Male BSA: 2.0 m2 : :: 1945 Age: 75 yrs BP: 165/74 mmHg: :Reason For Study: AORTIC STENOSIS : :Ordering Physician: LEAH, : :FREDERICK Performed By: Modesta Galan : :Referring: FREDERICK LYNN : + + Interpretation Summary Left ventricular systolic function remains normal with an estimated ejection fraction of 65 to 70% without any focal wall motion abnormality. Left ventricular size remains normal with borderline LVH. Diastolic function is challenging to assess in the setting of atrial fibrillation but filling pressures are likely unchanged from the previous study. The right ventricle is not well seen but grossly appears normal in size and systolic function and likely unchanged from the previous study. Right ventricular systolic pressure is now estimated at 57 mmHg with a CVP of 3 mmHg, and is likely significantly higher compared to the previous study. There is severe left atrial enlargement although it measures slightly smaller compared to the previous study. There is mild right atrial enlargement that is unchanged. There is mild to moderate tricuspid regurgitation that is unchanged from the previous study. There is probable moderate aortic stenosis, likely mildly progressive since the previous study with a peak velocity of 3.3 m/s and a mean gradient of 25 mmHg compared to 2.9 m/s and 19 mmHg, respectively, on the previous study. However, that severity ratio has remained essentially unchanged at 0.42 compared to 0.38 previously. There continues to be mild to moderate aortic regurgitation that is slightly more prominent compared to the previous exam. The ascending aorta remains mildly enlarged but unchanged from the previous study. Procedure: A two-dimensional transthoracic echocardiogram with color flow and Doppler was performed. The study quality was technically adequate. Comparison is made with the echocardiogram of 01/11/2019. The heart rate ranged between 49-65 bpm during the study. Left Ventricle: The left ventricle is normal in size. Left ventricular wall thickness is borderline increased. Left ventricular systolic function appears normal without focal wall motion abnormalities. The ejection fraction is estimated to be 65-70%. Diastolic function could not be accurately assessed due to atrial fibrillation. There has been no significant change since the previous study. Right Ventricle: The right ventricle is not well visualized. The right ventricle grossly appears normal in size with probable normal systolic function. Atria: The left atrium is severely dilated. The left atrium has mildly decreased in size since the prior echo exam. The right atrium is mildly dilated. This is unchanged compared to the previous study. There is no Doppler evidence for an interatrial shunt. Mitral Valve: There is mild mitral annular calcification. The mitral valve leaflets appear mildly thickened, but open well. There is trace mitral regurgitation. Aortic Valve: The aortic valve is severely calcified. There is moderate to severely reduced leaflet mobility. There is moderate aortic stenosis. The peak aortic velocity is 3.3 m/sec. The aortic valve mean gradient is 25 mmHg. The calculated aortic valve area is 1.3 cm2. This is mildly progressive compared to the previous study. There is mild to moderate aortic regurgitation. This is slightly more prominent compared to the previous study. Tricuspid Valve: The tricuspid valve is normal in structure and function. There is mild to moderate tricuspid regurgitation. This is unchanged compared to the previous study. The right ventricular systolic pressure is estimated to be at least 57 mmHg based on an estimated right atrial pressure of 3 mm Hg. This is significantly higher compared to the previous study. Pulmonic Valve: The pulmonic valve is not well seen, but is grossly normal. There is no pulmonic valvular regurgitation. Great Vessels: The aortic root is normal size. The ascending aorta is mildly enlarged. This is unchanged compared to the previous study. The IVC is of normal diameter and collapses greater than 50% with a sniff. This suggests a low right atrial pressure of 3 mm Hg. Pericardium/ Pleura There is no pericardial effusion. There is no pleural effusion. MMode/2D Measurements & Calculations LVIDd: 4.1 cm LVOT diam: 2.1 cm LVIDs: 2.6 cm Ao root diam: 3.4 cm FS: 36.4 % asc Aorta Diam: 3.8 cm IVSd: 0.97 cm Ao Arch Diam (Prox Trans): 3.6 cm LVPWd: 1.2 cm LV sanchez. diameter/BSA (cm/m^2): 2.1 LV sys. diameter/BSA (cm/m^2): 1.3 LA A2 area: 28.8 cm2 RA long axis: 6.2 cm LA A4 area: 27.4 cm2 RA area: 22.4 cm2 LA length (vol): 6.9 cm RA vol: 68.4 ml LA vol: 97.0 ml RA : 34.0 ml/m2 LA vol index: 48.2 ml/m2 IVC diam: 1.5 cm RVD1 (basal): 3.2 cm TAPSE: 1.8 cm Doppler Measurements & Calculations Ao V2 max: 327.0 cm/sec LVOT Max Ranjit: 121.0 cm/sec Ao V2 mean: 236.2 cm/sec LV V1 max P.9 mmHg Ao max P.9 mmHg LV V1 VTI: 28.8 cm Ao mean P.1 mmHg MARLON(I,D): 1.5 cm2 Ao V2 VTI: 68.5 cm MARLON(V,D): 1.3 cm2 sev ratio: 0.42 MARLON indexed to BSA (cm^2/m^2): 0.73 AI P1/2t: 800.8 msec AI dec slope: 143.6 cm/sec2 MV E max ranjit: 141.1 cm/sec TR max ranjit: 366.6 cm/sec MV A max ranjit: 2.7 cm/sec TR max P.8 mmHg MV E/A: 51.4 PA pr(Accel): 41.3 mmHg Med Peak E' Ranjit: 8.8 cm/sec E/E' med: 16.0 Lat Peak E' Ranjit: 9.2 cm/sec E/E' lat: 15.4 E/e' average: 15.7 MV dec time: 0.21 sec SV(LVOT): 100.7 ml Reading Physician:05:33 PM
== END ==
PROVIDERS: PCP Internal Medicine; Referring Provider Internal Medicine Cardiovascular Disease; Visit Provider Internal Medicine Cardiovascular Disease
DX: I35.0 Nonrheumatic aortic (valve) stenosis (principal)
CPT/HCPCS: 93306

== ENCOUNTER → 2021-02-07 07:04 | Outpatient (CLI) | payer OTHER, SELFPAY ==
[2021-02-07 07:59] LABS: Hemoglobin A1C% w Est Avg Glu 6.9 % (4.0-6.0)
[2021-02-07 08:02] LABS: Alanine Aminotransferase 38 IU/L (<50); Albumin 3.9 g/dL (3.5-5.0); Albumin Globulin Ratio 1.2 (1.0-2.8); Alkaline Phosphatase 41 U/L (38-126); Aspartate Aminotransferase 46 IU/L (17-59); BUN Creatinine Ratio 25.3 (6-22); Blood Urea Nitrogen 19 mg/dL (9-20); Calcium 10.1 mg/dL (8.4-10.2); Carbon Dioxide 27 mmol/L (22-32); Chloride 99 mmol/L (98-107); Cholesterol 156 mg/dL (140-199); Estimated Glomerular Filt Rate > 60.0 mL/min (>60); Globulin 3.2 g/dL (1.7-4.1); Glucose 159 mg/dL (80-110); HDL Cholesterol 45 mg/dL (40-60); HEMOLYSIS 27 (0-50); LDL Cholesterol Calculated 73 mg/dL (<100); Sodium 135 mmol/L (137-145); Total Protein 7.1 g/dL (6.3-8.2); Triglycerides 189 mg/dL (35-150)
[2021-02-07 08:07] LABS: Potassium 5.5 mmol/L (3.4-5.1)
== END ==
PROVIDERS: PCP Internal Medicine; Referring Provider Internal Medicine; Visit Provider Internal Medicine
DX: E11.42 Type 2 diabetes mellitus with diabetic polyneuropathy (principal); I10 Essential (primary) hypertension; E78.5 Hyperlipidemia, unspecified
CPT/HCPCS: 36415; 80053; 80061; 83036

== ENCOUNTER → 2021-02-14 06:46 | Outpatient (CLI) | payer OTHER, SELFPAY ==
[2021-02-14 07:44] LABS: Add Manual Diff / Slide Review NO; Basophils Absolute Auto 100 /uL (0-100); Basophils Percent Auto 0.9 % (0-2); Eosinophils Absolute Auto 100 /uL (0-450); Eosinophils Percent Auto 1.9 % (2-4); Hematocrit 47.2 % (41-53); Hemoglobin 15.8 g/dL (13.5-17.5); Lymphocytes Absolute Auto 900 /uL (1100-4500); Lymphocytes Percent Auto 13.2 % (25-40); Mean Corpuscular HGB Conc 33.6 % (30-36); Mean Corpuscular Hemoglobin 33.2 PG (26-34); Mean Corpuscular Volume 98.8 fL (80-100); Monocytes Absolute Auto 800 /uL (0-900); Monocytes Percent Auto 11.1 % (3-14); Neutrophils Absolute Auto 5200 /uL (1500-7000); Neutrophils Percent Auto 72.9 % (50-75); Platelet Count 227 X10^3/uL (150-400); Red Blood Cell Count 4.77 X10^6/uL (4.5-5.9); Red Cell Distribution Width 13.9 % (11.6-14.8); White Blood Cell Count 7.2 X10^3/uL (4.5-11.0)
[2021-02-14 07:54] LABS: BUN Creatinine Ratio 18.6 (6-22); Blood Urea Nitrogen 13 mg/dL (9-20); Calcium 9.4 mg/dL (8.4-10.2); Carbon Dioxide 25 mmol/L (22-32); Chloride 98 mmol/L (98-107); Estimated Glomerular Filt Rate > 60.0 mL/min (>60); Glucose 153 mg/dL (80-110); HEMOLYSIS < 15 (0-50); Potassium 4.7 mmol/L (3.4-5.1); Sodium 131 mmol/L (137-145)
[2021-02-14 08:26] LABS: TSH w/ Reflex to FT4 3.33 uIU/mL (0.47-4.68)
[2021-02-14 08:44] LABS: Vitamin B12 926 pg/mL (239-931)
[2021-02-15 05:11] LABS: PSA Free % 9.2 % (.); PSA, Total 4.9 ng/mL (0.0-4.0)
== END ==
PROVIDERS: PCP Internal Medicine; Referring Provider Internal Medicine; Visit Provider Internal Medicine
DX: I10 Essential (primary) hypertension (principal); R97.20 Elevated prostate specific antigen [PSA]; R53.82 Chronic fatigue, unspecified
CPT/HCPCS: 36415; 80048; 82607; 84153; 84154; 84443; 85025

== ENCOUNTER → 2021-06-07 07:25 | Outpatient (CLI) | payer OTHER, SELFPAY ==
[2021-06-07 08:44] LABS: Hemoglobin A1C% w Est Avg Glu 7.8 % (4.0-6.0)
[2021-06-07 08:57] LABS: Alanine Aminotransferase 34 IU/L (<50); Albumin 3.8 g/dL (3.5-5.0); Albumin Globulin Ratio 1.3 (1.0-2.8); Alkaline Phosphatase 41 U/L (38-126); Aspartate Aminotransferase 45 IU/L (17-59); BUN Creatinine Ratio 19.4 (6-22); Bilirubin Total 1.1 mg/dL (0.2-1.3); Blood Urea Nitrogen 14 mg/dL (9-20); Calcium 9.2 mg/dL (8.4-10.2); Carbon Dioxide 29 mmol/L (22-32); Chloride 99 mmol/L (98-107); Estimated Glomerular Filt Rate > 60.0 mL/min (>60); Glucose 168 mg/dL (80-110); HEMOLYSIS < 15 (0-50); Potassium 4.5 mmol/L (3.4-5.1); Sodium 133 mmol/L (137-145); Total Protein 6.8 g/dL (6.3-8.2)
== END ==
PROVIDERS: PCP Internal Medicine; Referring Provider Internal Medicine; Visit Provider Internal Medicine
DX: E11.42 Type 2 diabetes mellitus with diabetic polyneuropathy (principal); I10 Essential (primary) hypertension
CPT/HCPCS: 36415; 80053; 83036

== ENCOUNTER → 2022-02-13 10:47 | Outpatient (CLI) | payer OTHER, SELFPAY ==
--- NOTE | 2022-02-13 10:48 | DI.MRI.S_ITS ---
PROCEDURE: MR PELIS WO/W CON INDICATIONS: Elevated PSA, unfavorable% free PSA TECHNIQUE: Coronal HASTE, axial T1 FSE with fat saturation, 3-plane nonbreath-hold T2 FSE. After the administration of contrast, dynamic axial, delayed axial and coronal VIBE or 2-D FLASH with fat saturation through the pelvis. Optional diffusion weighted imaging and ADC may be performed. COMPARISON: [facility], CT, CT ABDOMEN PELVIS W CON, 03/08/2020, 16:02. FINDINGS: Image quality: Diffusion weighted and dynamic contrast enhanced images are diagnostic. There is artifact degrading several sequences. Prostate: Gland size is 5.4 x 3.9 x 3.2 cm; ellipsoid gland volume is 36 mL. Focus of intrinsic T1 hyperintensity in the right mid gland most consistent with hemorrhage. BPH nodule in the apex right transitional zone anteriorly. Prostate calcifications seen on prior CT from 2019. No PI-RADS 4 or 5 observations for targeted biopsy. No foci of ADC hypointensity in the peripheral zone. No conspicuous foci of T2 hypointensity in the transitional zone. Genitourinary system: Bladder wall thickness is normal. Distal ureters are non distended. Bowel and peritoneum: No pathologic free pelvic fluid. Inferior colon and small bowel loops are normal in caliber. Diverticulosis. Nodes and vessels: No pelvic or inguinal adenopathy by size criteria. Iliac vessels are normal in caliber. Soft tissues: No inguinal hernias. Bones: Marrow demonstrates normal overall signal, without lesions to suggest metastases. IMPRESSION: Image quality is degraded by artifact. 1. No PI-RADS 4 or 5 observations for targeted biopsy. 2. No adenopathy identified. Dictated by: Elbert Lu M.D. on 02/14/2022 at 9:57 Approved by: Elbert Lu M.D. on 02/14/2022 at 10:04
== END ==
PROVIDERS: PCP Internal Medicine; Referring Provider Urology; Visit Provider Urology
DX: D40.0 Neoplasm of uncertain behavior of prostate (principal); R97.20 Elevated prostate specific antigen [PSA]
CPT/HCPCS: 72197; A9579

== ENCOUNTER → 2022-04-03 14:53 | Outpatient (CLI) | payer OTHER, SELFPAY ==
--- NOTE | 2022-04-03 14:54 | DI.ECHO.S_ITS ---
[place] +---------+ Hospital +---------+ : : [address] : : : : [id number] : : : : Phone: [phone]---------+ Echocardiogram Report + + :Name: CHON MCCARTHY Study Date: 04/03/2022 Height: 67 in : :[facility] ReadingLocation: Weight: 205 lb : : Gender: Male BSA: 2.0 m2 : :: 1945 Age: 76 yrs BP: 166/100 mmHg: :Reason For Study: Aortic valve stenosis : :Ordering Physician: LEAH, : :FREDERICK Performed By: Mian An : :Referring: FREDERICK LYNN : + + Interpretation Summary The left ventricle is normal in size. The ejection fraction is estimated to be 65-70%. No significant change in LV EF. The right ventricle is normal in size and function. The aortic valve is moderately calcified. There is severely reduced leaflet mobility. The peak aortic velocity is 3.08 m/sec. The peak aortic velocity on the previous exam was 3.3 m/sec. The aortic valve mean gradient is 21 mmHg. The calculated aortic valve area is .97 cm2. sev ratio: 0.35 There is moderate to severe aortic stenosis. There is mild tricuspid regurgitation. Compared to the prior echo exam, there has been no change in TR severity. The right ventricular systolic pressure is estimated to be at least 57 mmHg based on an estimated right atrial pressure of 3 mm Hg. Compared to the prior echo exam, there has been no change in the severity of pulmonary hypertension. The ascending aorta is mildly enlarged. Procedure: A two-dimensional transthoracic echocardiogram with color flow and Doppler was performed. The study quality was technically adequate. Comparison is made with the echocardiogram of 01/17/2021. The patient was in atrial fibrillation with controlled ventricular rate during the exam. Left Ventricle: The left ventricle is normal in size. Left ventricular wall thickness is mildly increased. There is no thrombus. Left ventricular systolic function is normal. The ejection fraction is estimated to be 65-70%. There are no focal wall motion abnormalities. Diastolic function could not be accurately assessed due to atrial fibrillation. Right Ventricle: The right ventricle is normal in size and function. Atria: The left atrium is severely dilated. There has been no significant change since the previous study. The right atrium is moderately dilated. The interatrial septum grossly appears intact with no obvious evidence for an atrial septal defect. Mitral Valve: There is mild mitral annular calcification. There is trace mitral regurgitation. Aortic Valve: The aortic valve is moderately calcified. There is severely reduced leaflet mobility. There is moderate to severe aortic stenosis. The peak aortic velocity is 3.08 m/sec. The aortic valve mean gradient is 21 mmHg. The peak aortic velocity on the previous exam was 3.3 m/sec. The calculated aortic valve area is .97 cm2. There is mild aortic regurgitation. Compared to the prior echo study, there has been a decrease in the severity of aortic regurgitation. Tricuspid Valve: The tricuspid valve is normal. There is mild tricuspid regurgitation. The right ventricular systolic pressure is estimated to be at least 57 mmHg based on an estimated right atrial pressure of 3 mm Hg. Compared to the prior echo exam, there has been no change in TR severity. Compared to the prior echo exam, there has been no change in the severity of pulmonary hypertension. Pulmonic Valve: The pulmonic valve is not well visualized. Great Vessels: The aortic root is normal size. The ascending aorta is mildly enlarged. This is unchanged compared to the previous study. The aortic arch could not be visualized. The IVC is of normal diameter and collapses greater than 50% with a sniff. This suggests a low right atrial pressure of 3 mm Hg. Pericardium/ Pleura There is no pericardial effusion. There is no pleural effusion. MMode/2D Measurements & Calculations LVIDd: 4.6 cm LVOT diam: 1.9 cm LVIDs: 2.9 cm Ao root diam: 3.4 cm FS: 37.0 % asc Aorta Diam: 3.8 cm IVSd: 1.1 cm LVPWd: 1.1 cm LV sanchez. diameter/BSA (cm/m^2): 2.3 LV sys. diameter/BSA (cm/m^2): 1.4 LA dimension: 3.7 cm RA long axis: 5.9 cm LA A2 area: 25.2 cm2 LA A4 area: 28.2 cm2 LA length (vol): 6.4 cm LA vol: 93.8 ml LA vol index: 45.9 ml/m2 TAPSE_phl: 1.8 cm Doppler Measurements & Calculations Ao V2 max: 308.0 cm/sec LVOT Max Ranjit: 99.2 cm/sec Ao V2 mean: 213.0 cm/sec LV V1 max P.9 mmHg Ao max P.0 mmHg LV V1 VTI: 22.2 cm Ao mean P.0 mmHg MARLON(I,D): 0.97 cm2 Ao V2 VTI: 63.4 cm MARLON(V,D): 0.89 cm2 sev ratio: 0.35 MARLON indexed to BSA (cm^2/m^2): 0.47 TR max ranjit: 366.0 cm/sec SV(LVOT): 61.4 ml TR max P.6 mmHg AV VR_phl: 0.32 MARLON(VTI)/BSA_phl: 0.49 Reading Physician:08:24 AM
== END ==
PROVIDERS: PCP Internal Medicine; Referring Provider Internal Medicine Cardiovascular Disease; Visit Provider Internal Medicine Cardiovascular Disease
DX: I08.2 Rheumatic disorders of both aortic and tricuspid valves (principal); I27.21 Secondary pulmonary arterial hypertension; I77.89 Other specified disorders of arteries and arterioles
CPT/HCPCS: 93306

== ENCOUNTER → 2022-10-31 15:48 | Outpatient (CLI) | payer OTHER, SELFPAY ==
--- NOTE | 2022-10-31 15:53 | DI.ECHO.S_ITS ---
Interpretation Summary The left ventricle is normal in size. The ejection fraction is estimated to be 65-70%. This is unchanged compared to the previous study. The right ventricle is borderline dilated. The right ventricular systolic function is normal. Aortic valve at least moderately calcified.There is moderate to severely reduced leaflet mobility. The peak aortic velocity is 3.6 m/sec. The aortic valve mean gradient is 26.8 mmHg. The calculated aortic valve area is .9 cm2. The peak aortic velocity on the previous exam was 3.08 m/sec. sev ratio: 0.35, stroke-volume index 39.52 mL/m??. Moderate to severe aortic stenosis. There is mild aortic regurgitation. Compared to the prior echo study, there has been no change in the severity of aortic regurgitation. There is mild tricuspid regurgitation. Compared to the prior echo exam, there has been no change in TR severity. The right ventricular systolic pressure is estimated to be at least 45.4 mmHg based on an estimated right atrial pressure of 3 mm Hg. Compared to the prior echo exam, there has been a decrease in the severity of pulmonary hypertension. The ascending aorta is mildly enlarged. 4.0 cm in diameter. Previously 3.8 cm. There is aortic root sclerosis/calcification. Procedure: A two-dimensional transthoracic echocardiogram with color flow and Doppler was performed. The study quality was technically good. There has been no significant change since the previous study. The patient was in atrial fibrillation with heart rates between 53-79 bpm during the exam. Left Ventricle: The left ventricle is normal in size. There is moderate proximal septal thickening noted. There is mild concentric left ventricular hypertrophy. There is no thrombus. The ejection fraction is estimated to be 65-70%. This is unchanged compared to the previous study. There are no focal wall motion abnormalities. Diastolic function could not be accurately assessed due to atrial fibrillation. E/E' med: 19.7. Right Ventricle: The right ventricle is borderline dilated. The right ventricular systolic function is normal. Atria: The left atrium is severely dilated. The left atrium has remained unchanged in size since the prior echo exam. The right atrium is moderately dilated. There has been no significant change since the previous study. There is no Doppler evidence for an interatrial shunt. Mitral Valve: The mitral valve leaflets are slightly calcified. There has been no significant change since the previous study. No significant mitral valve stenosis. There is trace mitral regurgitation. Aortic Valve: The aortic valve is trileaflet. The aortic valve is moderately calcified. There is moderate to severely reduced leaflet mobility. There is moderate to severe aortic stenosis. The peak aortic velocity is 3.6 m/sec. The aortic valve mean gradient is 26.8 mmHg. The calculated aortic valve area is .9 cm2. The peak aortic velocity on the previous exam was 3.08 m/sec. There is mild aortic regurgitation. Compared to the prior echo study, there has been no change in the severity of aortic regurgitation. Tricuspid Valve: The tricuspid valve is normal. There is mild tricuspid regurgitation. The right ventricular systolic pressure is estimated to be at least 45.4 mmHg based on an estimated right atrial pressure of 3 mm Hg. Compared to the prior echo exam, there has been no change in TR severity. Compared to the prior echo exam, there has been a decrease in the severity of pulmonary hypertension. Pulmonic Valve: The pulmonic valve leaflets are thin and pliable; valve motion is normal. There is no pulmonic valvular regurgitation. Great Vessels: The aortic root is normal size. There is aortic root sclerosis/calcification. The ascending aorta is mildly enlarged. The pulmonary artery is normal size. The IVC is of normal diameter and collapses greater than 50% with a sniff. This suggests a low right atrial pressure of 3 mm Hg. Pericardium/ Pleura There is no pericardial effusion. There is no pleural effusion. MMode/2D Measurements & Calculations LVIDd: 3.9 cm LVOT diam: 2.0 cm LVIDs: 2.7 cm Ao root diam: 3.5 cm FS: 30.5 % asc Aorta Diam: 4.0 cm EPSS: 1.0 cm IVSd: 1.1 cm LVPWd: 1.4 cm LV sanchez. diameter/BSA (cm/m^2): 2.0 LV sys. diameter/BSA (cm/m^2): 1.4 LA A2 area: 32.1 cm2 RA long axis: 6.1 cm LA A4 area: 28.2 cm2 RA area: 22.8 cm2 LA length (vol): 6.5 cm RA vol: 72.7 ml LA vol: 119.0 ml RA : 36.8 ml/m2 LA vol index: 60.3 ml/m2 IVC diam: 1.5 cm RVD1 (basal): 4.4 cm TAPSE: 2.8 cm Doppler Measurements & Calculations Ao V2 max: 360.5 cm/sec LVOT Max Ranjit: 103.3 cm/sec Ao V2 mean: 247.5 cm/sec LV V1 max P.3 mmHg Ao max P.0 mmHg LV V1 VTI: 24.8 cm Ao mean P.8 mmHg MARLON(I,D): 1.1 cm2 Ao V2 VTI: 70.6 cm MARLON(V,D): 0.90 cm2 sev ratio: 0.35 MARLON indexed to BSA (cm^2/m^2): 0.56 AI P1/2t: 621.1 msec AI dec slope: 210.8 cm/sec2 MV E max ranjit: 129.0 cm/sec TR max ranjit: 325.7 cm/sec Med Peak E' Ranjit: 6.5 cm/sec TR max P.4 mmHg E/E' med: 19.7 PA V2 max: 77.8 cm/sec Lat Peak E' Ranjit: 9.4 cm/sec PA V2 mean: 52.9 cm/sec E/E' lat: 13.7 PA mean P.2 mmHg E/e' average: 16.7 MV dec time: 0.16 sec MVA(VTI): 3.1 cm2 MV V2 mean: 70.3 cm/sec SV(LVOT): 77.9 ml MV mean P.5 mmHg MV V2 VTI: 25.2 cm Reading Physician:01:29 PM
== END ==
PROVIDERS: PCP Internal Medicine; Referring Provider Internal Medicine Cardiovascular Disease; Visit Provider Internal Medicine Cardiovascular Disease
DX: I08.2 Rheumatic disorders of both aortic and tricuspid valves (principal); I77.89 Other specified disorders of arteries and arterioles
CPT/HCPCS: 93306

== ENCOUNTER → 2023-01-28 14:17 | Outpatient (CLI) | payer OTHER, SELFPAY ==
--- NOTE | 2023-01-28 14:20 | DI.CT.S_ITS ---
PROCEDURE: CT ABDOMEN PELVIS W CON INDICATIONS: Lower abdominal pain, unspecified TECHNIQUE: After the administration of oral and intravenous contrast, axial sections were acquired from the lung bases to the pubic symphysis. Coronal and sagittal reformats were performed. For radiation dose reduction, the following was used: automated exposure control, adjustment of mA and/or kV according to patient size. COMPARISON:[facility], CT, CT ABDOMEN PELVIS W CON, 03/08/2020, 16:02. FINDINGS: Lung bases: No pleural effusion. ABDOMEN: Liver: Unremarkable. Gallbladder: Absent. Biliary ducts: Unremarkable. Pancreas: Unremarkable. Spleen: Unremarkable. Adrenal Glands: Unremarkable. Kidneys and Ureters: No hydronephrosis. Possible punctate nonobstructing stones left inferior kidney not substantially changed since the prior exam. Stomach and Bowel: No bowel obstruction. Severe predominantly sigmoid colonic diverticulosis without evidence of acute diverticulitis. Peritoneum: No abnormal intraperitoneal fluid. No free air. Ventral Wall: Small fat containing periumbilical hernia Abdominal Nodes: No retroperitoneal or mesenteric adenopathy by size criteria. Vessels: Aorta and inferior vena cava are normal in size. PELVIS: Pelvic Organs: Unremarkable. Bladder: Unremarkable. Pelvic Nodes: No enlarged lymph nodes. Bones: Multilevel degenerative change of the visualized spine. IMPRESSION: 1. No acute appearing abnormality identified within the abdomen or pelvis. 2. Severe colonic diverticulosis without evidence of acute diverticulitis. Dictated by: Emanuel Brasher M.D. on 01/28/2023 at 18:01 Approved by: Emanuel Brasher M.D. on 01/28/2023 at 18:13
== END ==
PROVIDERS: PCP Internal Medicine; Referring Provider Internal Medicine; Visit Provider Internal Medicine
DX: K57.30 Diverticulosis of large intestine without perforation or abscess without bleeding (principal); K43.9 Ventral hernia without obstruction or gangrene; R10.30 Lower abdominal pain, unspecified
CPT/HCPCS: 74177; Q9967

== ENCOUNTER 2023-02-07 16:38 | Emergency (ER) | payer OTHER, SELFPAY ==
[2023-02-07] VITALS (7 sets, daily range): BP systolic 173–218; BP diastolic 82–98; PULSE 58–62; RESP 18–28; TEMP 36.4; O2SAT 100; BMI 30.5
--- NOTE | 2023-02-07 16:57 | ED_ITS ---
HPI - Fall General Chief Complaint: Fall Stated Complaint: Fall, hit right side Time Seen by Provider: 02/07/23 16:50 Source: patient Mode of arrival: Wheelchair History of Present Illness HPI Narrative: 77-year-old male nonsmoker with history of hypertension and atrial fibrillation on Eliquis presents from the walk-in clinic for evaluation of a ground level fall with head injury. He states that he has balance issues and that is not so mething abnormal for him. He turned quickly today and unfortunately tripped and fell onto his side and suffered some small skin tears on his hands and bent his glasses, he has an abrasion and a small area of ecchymosis on the right side of his head. He denies loss of consciousness, nausea or vomiting. Denies any blurred vision trouble speech or neck pain. Denies any chest pain or shortness of breath. Related Data Home Medications Medication Instructions Recorded Confirmed losartan 100 mg tablet 100 mg PO QDAY ##0 12/21/16 01/30/22 Multi Vitamin 08/25/18 01/30/22 mehnaz govea 08/25/18 01/30/22 apixaban 5 mg tablet (Eliquis) 5 mg PO ONCE 01/30/22 01/30/22 clonidine HCl 0.1 mg PO TID 01/30/22 01/30/22 diltiazem HCl 120 mg PO DAILY 01/30/22 01/30/22 metformin 500 mg tablet,extended 500 mg PO QID 01/30/22 01/30/22 release 24 hr nystatin 100,000 unit/gram topical 1 applic topical .PRN 01/30/22 01/30/22 cream Allergies Allergy/AdvReac Type Severity Reaction Status Date / Time warfarin [From COUMADIN] Allergy Severe Difficulty Verified 03/19/22 13:29 Breathing Review of Systems Review of Systems Narrative: GENERAL: Denies chills, fatigue, malaise, fever, sweats. HEENT: Denies sinus pain, ear pain, sore throat, difficulty swallowing, dizziness. RESPIRATORY: Denies dyspnea, cough, wheezing, hemoptysis, sputum. CARDIOVASCULAR: Denies chest pain, palpitations, orthopnea, edema, GASTROINTESTINAL: Denies nausea, vomiting, abdominal pain, diarrhea, constipation, melena. : Denies dysuria, frequency, incontinence, hematuria, urinary retention. MUSCULOSKELETAL: See HPI SKIN: See HPI NEUROLOGIC: Denies weakness, headache, numbness, change in speech, confusion, seizures, incoordination. PSYCHIATRIC: No concerning psychosocial issues. 12 point review of systems is negative except for those stated above Patient History Medical History Atrial fibrillation Chronic anticoagulation Elevated PSA History of high blood pressure Hx of diabetes mellitus Hx of kidney disease Hx of nausea Surgical History History of back surgery Hx of cholecystectomy Hx of circumcision Hx of colectomy Family History Mother Hypertension FH: CVA (cerebrovascular accident) Father Eczema Social History marital status: number of children: 2 household members: family Smoking Status: Never smoker Type(s) of exercise: walking frequency: 5-6 times per week Smoking Status: Never smoker alcohol intake frequency: 0-2 drinks per day Substance Use Type: does not use Exam Narrative Exam Narrative: GENERAL: [77] year old patient appears stated age. Well-developed patient, in mild distress. HEAD: Small superficial abrasion lateral to the right eye, minimal ecchymosis of the upper lid, no other abrasion, contusion or hematoma, no evidence of depressed skull fracture. EYES: Pupils equal round and reactive. No hyphema Extraocular motions intact. No scleral icterus. No injection or drainage. ENT: Nose without bleeding, purulent drainage. No nasal septal hematoma Throat without erythema, tonsillar hypertrophy or exudate. Airway patent. NECK: Trachea midline. Non tender CARDIOVASCULAR: Regular rate and rhythm without murmurs, gallops, or rubs. RESPIRATORY: Clear to auscultation. Breath sounds equal bilaterally. No wheezes, rales, or rhonchi. GASTROINTESTINAL: Abdomen soft, non-tender, nondistended. EXTREMITIES: Superficial abrasions and a minor skin tear on right hand No edema or joint tenderness. BACK: Nontender without deformity or crepitance. No flank tenderness. NEURO: AOx3. SKIN: No rash or erythema of visible areas Initial Vital Signs Initial Vital Signs: Vital Signs Temperature 97.6 F 02/07/23 16:41 Pulse Rate 61 02/07/23 16:41 Respiratory Rate 18 02/07/23 16:41 Blood Pressure 186/83 H 02/07/23 16:41 Pulse Oximetry 100 02/07/23 16:41 Oxygen Delivery Method Room Air 02/07/23 16:41 Course Vital Signs Vital signs: Vital Signs - 8 hr 02/07/23 16:41 Temperature 97.6 F Pulse Rate 61 Respiratory Rate 18 Blood Pressure 186/83 H Pulse Oximetry 100 Oxygen Delivery Method Room Air MDM - Fall Lab Data Labs: Point of Care Testing Glucose POC 120 Urine Dip Bedside Urine Glucose Negative Bedside Urine Bilirubin - Negative Bedside Urine Ketone - Negative Urine Specific [place] 1.010 Bedside Urine Occult Blood - Negative Bedside Urine pH 7.0 Bedside Urine Protein +/- 15 Bedside Urine Urobilinogen - Negative Bedside Urine Nitrite - Negative Bedside Urine Leukocytes - Negative Esterase MDM Narrative Medical decision making narrative: [77] year old patient presents with fall with head injury on blood thinners Multiple etiologies for patient's symptoms considered including, but not limited to: [Abrasion, contusion versus intracranial hemorrhage versus other] Prior Charts reviewed in our EMR Primary Historian: patient Imaging reviewed: CT without acute finding Patient with reassuring history and physical exam has minor injuries as a consequence of fall. He denies any prodromal symptoms and admits to a clumsy moment. Imaging is reassuring and there is no evidence of intracranial hemorrhage. Patient is asymptomatic and has only minor superficial injuries to the skin of the dorsum of his right hand. No further workup needed Findings and discharge diagnosis discussed with patient/family followed by verbalization of understanding Return precautions discussed with patient/family whom verbalize understanding of diagnosis and plan Discharge Plan Departure Patient Disposition: Home Clinical Impression: Head injury, Skin tear Instructions: How to Prevent Falls Activity Restrictions/Additional Instructions: *You have been diagnosed with [fall with head injury and skin tear. As we discussed your head CT was normal ] *What to do: *Please continue to take your regular medications as directed. *Please follow up with your primary care provider in 2-3 days, call for an appointment. Let them know you were seen in the Emergency Department and that we ask that you be seen in follow up. We will electronically transmit a record of today's note if your PCP is in our system *If you do not have a primary care provider please contact the [facility] Resource line at [phone]. They will ask some questions about your medical history and help get you set up with a doctor in the community. *Return to Emergency Department if you should have any new, worsening or concerning symptoms, such as [fever greater than 101 F, shaking chills, worsening pain, persistent vomiting or other bothersome symptoms] Prescriptions: No Action losartan 100 MG tablet 100 mg PO QDAY Qty: 0 Multi Vitamin saw palmetto clonidine HCl 0.1 MG tablet 0.1 mg PO TID diltiazem HCl 120 mg 120 mg PO DAILY Eliquis 5 mg tablet 5 mg PO ONCE metformin 500 mg tablet extended release 24 hr 500 mg PO QID nystatin 100,000 unit/gram cream 1 applic topical .PRN Referrals: Mona Richey MD [Primary Care Provider] - Stand Alone Forms: Patient Portal/API
--- NOTE | 2023-02-07 17:00 | DI.CT.S_ITS ---
PROCEDURE: CT HEAD/BRAIN WO CON INDICATIONS: fall with head injury TECHNIQUE: Noncontrast 4.5 mm thick angled axial sections acquired from the foramen magnum to the vertex, with coronal and sagittal reformats. For radiation dose reduction, the following was used: automated exposure control, adjustment of mA and/or kV according to patient size. COMPARISON: None. FINDINGS: Image quality: Excellent. CSF spaces: Basal cisterns are patent. No extra-axial fluid collections. The ventricles are symmetric in size and shape. Brain: No intracranial bleeds or masses. There is cerebral volume loss for age, with resultant ventricular and sulcal prominence. There are periventricular and deep white matter chronic small vessel ischemic changes. There is intracranial internal carotid artery atherosclerosis. Skull and face: Calvarium and visualized facial bones appear intact, without suspicious lesions. Sinuses: Visualized sinuses and mastoids are clear. IMPRESSION: 1. No CT evidence of acute intracranial trauma. 2. No significant soft tissue injury or underlying fracture. 3. Age-appropriate cerebral cortical volume loss and chronic microvascular ischemic changes. Dictated by: Pili May M.D. on 02/07/2023 at 16:59 Approved by: Pili May M.D. on 02/07/2023 at 17:00
--- NOTE | 2023-02-07 18:17 | PC.NURSE ---
Provider made aware of patient vitals. Provider OK if patient goes home to get home meds as does not want to add another expense by giving meds here. Pt states, I'll just take them at home.
== END 2023-02-07 18:26 | disposition home or self-care (01) ==
PROVIDERS: Emergency Provider Emergency Medicine; PCP Internal Medicine
DX: S09.90XA Unspecified injury of head, initial encounter (principal); S61.411A Laceration without foreign body of right hand, initial encounter; W18.30XA Fall on same level, unspecified, initial encounter
CPT/HCPCS: 70450; 81003; 82962; 99283; 99284

== ENCOUNTER → 2023-08-25 14:16 | Outpatient (CLI) | payer OTHER, SELFPAY ==
--- NOTE | 2023-08-25 14:20 | DI.RAD.S_ITS ---
PROCEDURE: XR LUMBAR SPINE 2-3V INDICATIONS: right sided back pain TECHNIQUE: 3 views of the lumbar spine were acquired. COMPARISON: [facility], CT, CT ABDOMEN PELVIS W CON, 01/28/2023, 15:56. FINDINGS: Bones: 5 [id number] vertebrae are present. There is trace retrolisthesis of L1 on L2, L2 on L3, L4 on L5, L5 on S1 and trace anterolisthesis of L3 on L4. Compression deformity measuring 29% is present at L1 new compared to prior exam on 01/28/2023. No suspicious bony lesions. Multilevel degenerative disc space narrowing most severe at L4-5 and L5-S1 as well as severe foraminal narrowing at these levels. Soft tissues: Overlying bowel gas pattern is normal. Moderate stool is present. No suspicious soft tissue calcifications. IMPRESSION: L1 compression deformity appearing acute/subacute. Recommend correlation to recent trauma. MRI may be obtained for further delineation of chronicity. Consult with interventional radiology for possible intervention may be obtained. Prominent degenerative changes at L4-5, L5-S1. Dictated by: Caridad Carrasco M.D. on 08/25/2023 at 16:26 Approved by: Caridad Carrasco M.D. on 08/25/2023 at 16:30
== END ==
PROVIDERS: PCP Internal Medicine; Referring Provider Internal Medicine; Visit Provider Internal Medicine
DX: M47.816 Spondylosis without myelopathy or radiculopathy, lumbar region (principal); M47.817 Spondylosis without myelopathy or radiculopathy, lumbosacral region; M43.8X6 Other specified deforming dorsopathies, lumbar region; M54.50 Low back pain, unspecified
CPT/HCPCS: 72100

== ENCOUNTER → 2023-10-20 16:03 | Outpatient (CLI) | payer OTHER, SELFPAY ==
--- NOTE | 2023-10-20 | DI.RAD.S_ITS ---
PROCEDURE: XR CHEST 2V INDICATIONS: COUGH TECHNIQUE: 2 views of the chest were acquired. COMPARISON: [facility], CR, XR CHEST 2V, 07/06/2019, 20:25. FINDINGS: Surgical changes and devices: None. Lungs and pleura: Small right pleural effusion with right basilar atelectasis. Suspect tiny left pleural effusion. Mildly increased pulmonary vascularity. No pneumothorax. Mediastinum: Mediastinal contours are normal. Heart size is mildly enlarged. Bones and chest wall: No suspicious bony abnormalities. Soft tissues appear unremarkable. IMPRESSION: 1. Mild cardiomegaly Increased pulmonary vascularity with small right pleural effusion and trace left pleural effusion, suggesting mild CHF. Dictated by: Esperanza Palma M.D. on 10/20/2023 at 16:43 Approved by: Esperanza Palma M.D. on 10/20/2023 at 16:46
== END ==
PROVIDERS: PCP Internal Medicine; Referring Provider Internal Medicine; Visit Provider Internal Medicine
DX: J90 Pleural effusion, not elsewhere classified (principal); R05.9 Cough, unspecified; I51.7 Cardiomegaly
CPT/HCPCS: 71046

== ENCOUNTER → 2023-11-12 07:52 | Outpatient (CLI) | payer OTHER, SELFPAY ==
--- NOTE | 2023-11-12 07:53 | DI.ECHO.S_ITS ---
[facility]+ [facility] +---------+ : : [address] [place] [place] : : : : [id number] : : : : Phone: [phone]+ Echocardiogram Report + + :Name: CHON MCCARTHY Study Date: 11/12/2023 Height: 67 in : :[facility] ReadingLocation: Weight: 195 lb : : Gender: Male BSA: 2.0 m2 : :: 1945 Age: 78 yrs BP: 147/75 mmHg: :Reason For Study: CONGESTIVE HEART FAILURE : :Ordering Physician: ALBERTO, : :DIANA Performed By: Modesta Galan : :Referring: DIANA DOMINGUEZ : + + Interpretation Summary The patient was in atrial fibrillation with heart rates between 39-47 bpm during the exam. The left ventricle is normal in size. The ejection fraction is estimated to be 60-65%. Previous LVEF 65-70%. The right ventricle is at the upper limits of normal in size. The right ventricular systolic function is normal. The aortic valve is heavily calcified. There is severely reduced leaflet mobility. The peak aortic velocity is 3.3 m/sec. The aortic valve mean gradient is 25 mmHg. The calculated aortic valve area is 0.87 cm2. The peak aortic velocity on the previous exam was 3.6 m/sec. Stroke-volume index, around 33 mm/mA?. Previously 39.52 mL/mA?. Likely paradoxically low gradient severe aortic stenosis. There is moderate tricuspid regurgitation. Compared to the prior echo exam, there has been an increase in TR severity. The right ventricular systolic pressure is estimated to be at least 80 mmHg based on an estimated right atrial pressure of 8 mm Hg. There is severe pulmonary hypertension. Compared to the prior echo exam, there has been an increase in the severity of pulmonary hypertension. Procedure: A two-dimensional transthoracic echocardiogram with color flow and Doppler was performed. The study quality was technically adequate. Comparison is made with the echocardiogram of 10/31/2022. The patient was in atrial fibrillation with heart rates between 39-47 bpm during the exam. Left Ventricle: The left ventricle is normal in size. There is mild concentric left ventricular hypertrophy. There is no thrombus. The ejection fraction is estimated to be 60-65%. There are no focal wall motion abnormalities. Diastolic function could not be accurately assessed due to atrial fibrillation. Right Ventricle: The right ventricle is at the upper limits of normal in size. The right ventricular systolic function is normal. Atria: The left atrium is severely dilated. There has been no significant change since the previous study. The right atrium is moderately dilated. There is no Doppler evidence for an interatrial shunt. Mitral Valve: There is mild mitral annular calcification. There is mild mitral regurgitation. There has been no significant change since the previous study. Aortic Valve: The aortic valve is heavily calcified. There is severely reduced leaflet mobility. The peak aortic velocity is 3.3 m/sec. The aortic valve mean gradient is 25 mmHg. The calculated aortic valve area is 0.87 cm2. The peak aortic velocity on the previous exam was 3.6 m/sec. There is mild aortic regurgitation. Tricuspid Valve: The tricuspid valve is normal. There is moderate tricuspid regurgitation. The right ventricular systolic pressure is estimated to be at least 80 mmHg based on an estimated right atrial pressure of 8 mm Hg. There is severe pulmonary hypertension. Compared to the prior echo exam, there has been an increase in TR severity. Compared to the prior echo exam, there has been an increase in the severity of pulmonary hypertension. Pulmonic Valve: The pulmonic valve leaflets are thin and pliable; valve motion is normal. There is no pulmonic valvular regurgitation. Great Vessels: The aortic root is normal size. The ascending aorta is mildly enlarged. The IVC is dilated (diameter is greater than 2.1 cm) yet it collapses greater than 50% with a sniff. This suggests a right atrial pressure of 8 mm Hg. Pericardium/ Pleura There is no pericardial effusion. There is no pleural effusion. MMode/2D Measurements & Calculations LVIDd: 4.6 cm LVOT diam: 2.0 cm LVIDs: 2.6 cm Ao root diam: 3.4 cm FS: 42.5 % asc Aorta Diam: 3.7 cm IVSd: 1.1 cm LVPWd: 1.2 cm LV sanchez. diameter/BSA (cm/m^2): 2.3 LV sys. diameter/BSA (cm/m^2): 1.3 LA A2 area: 27.9 cm2 RA long axis: 6.3 cm LA A4 area: 26.7 cm2 RA area: 24.1 cm2 LA length (vol): 6.4 cm RA vol: 79.0 ml LA vol: 99.0 ml RA : 39.5 ml/m2 LA vol index: 49.5 ml/m2 IVC diam: 2.3 cm RVD1 (basal): 4.1 cm TAPSE: 1.8 cm Doppler Measurements & Calculations Ao V2 max: 332.5 cm/sec LVOT Max Ranjit: 92.9 cm/sec Ao V2 mean: 227.6 cm/sec LV V1 max P.5 mmHg Ao max P.3 mmHg LV V1 VTI: 21.7 cm Ao mean P.3 mmHg MARLON(I,D): 0.90 cm2 Ao V2 VTI: 74.8 cm MARLON(V,D): 0.87 cm2 sev ratio: 0.29 MARLON indexed to BSA (cm^2/m^2): 0.45 MV E max ranjit: 150.6 cm/sec TR max ranjit: 425.9 cm/sec MV A max ranjit: 1.2 cm/sec TR max P.5 mmHg MV E/A: 130.8 PA pr(Accel): 51.6 mmHg Med Peak E' Ranjit: 8.6 cm/sec E/E' med: 17.5 Lat Peak E' Ranjit: 6.8 cm/sec E/E' lat: 22.3 E/e' average: 19.9 MV dec time: 0.20 sec MVA(VTI): 2.1 cm2 MV V2 mean: 89.9 cm/sec SV(LVOT): 67.3 ml MV mean P.2 mmHg MV V2 VTI: 32.5 cm Reading Physician:04:27 PM
== END ==
LOC: ECHO 07:52
PROVIDERS: PCP Internal Medicine; Referring Provider Internal Medicine; Visit Provider Internal Medicine
DX: I08.3 Combined rheumatic disorders of mitral, aortic and tricuspid valves (principal); I50.9 Heart failure, unspecified; I27.20 Pulmonary hypertension, unspecified; I77.89 Other specified disorders of arteries and arterioles
CPT/HCPCS: 93306